=== PATIENT | female | born 2000 | race Two or more races ===

== ENCOUNTER 2018-10-08 23:17 | Emergency (ER) | payer OTHER ==
[~2018-10-08] VITALS: Ht 167.6 cm; Wt 81.6 kg
[2018-10-08 23:55] VITALS: BP 99/53
--- NOTE | 2018-10-08 23:58 | PHYS DOC ---
Adult General Chief Complaint Chief Complaint: MECHANICAL FALL HPI HPI Patient is a 18 year old female who presents with tonight at 2100 she tripped over her dog and fell down 10 stairs. Patient complains of left shoulder pain, left facial pain, left knee pain, left forearm and wrist pain. Patient rates her throbbing aching pain at a 4 out of 10. Patient states she took Toradol before coming to the emergency room. (JAYNA TUCKER APRN) Review of Systems Review of Systems Constitutional: Denies fever or chills [] Eyes: Denies change in visual acuity, redness, or eye pain [] HENT: Denies nasal congestion or sore throat [] Respiratory: Denies cough or shortness of breath [] Cardiovascular: No additional information not addressed in HPI [] GI: Denies abdominal pain, nausea, vomiting, bloody stools or diarrhea [] : Denies dysuria or hematuria [] Musculoskeletal: Left shoulder, left knee, left forearm, left wrist, left maxillofacial pain. Denies back pain or joint pain [] Integument: Denies rash or skin lesions [] Neurologic: Denies headache, focal weakness or sensory changes [] Endocrine: Denies polyuria or polydipsia [] All other systems were reviewed and found to be within normal limits, except as documented in this note. (JAYNA TUCKER APRN) Current Medications Current Medications Current Medications Medications (Trade) Dose Ordered Sig/Jeniffer Start Time Stop Time Status Last Admin Dose Admin Neomycin/ Polymyxin/ Bacitracin (Triple Antibiotic Ointment) 1 pkt 1X ONCE 10/09/18 02:15 10/09/18 02:16 DC 10/09/18 02:20 1 PKT (JANNY HORAN DO) Allergies Allergies Allergies Coded Allergies Type Severity Reaction Last Updated Verified No Known Drug Allergies 10/09/18 No (JANNY HORAN DO) Physical Exam Physical Exam Constitutional: Well developed, well nourished, no acute distress, non-toxic appearance. [] HENT: Normocephalic, atraumatic, bilateral external ears normal, oropharynx moist, no oral exudates, nose normal. [] Eyes: PERRLA, EOMI, conjunctiva normal, no discharge. [] Neck: Normal range of motion, no tenderness, supple, no stridor. [] Cardiovascular:Heart rate regular rhythm, no murmur [] Lungs & Thorax: Bilateral breath sounds clear to auscultation [] Abdomen: Bowel sounds normal, soft, no tenderness, no masses, no pulsatile masses. [] Skin: Abrasion to left shoulder and bruising to left maxillofacial. Warm, dry, no erythema, no rash. [] Back: No tenderness, no CVA tenderness. [] Extremities: Left maxillofacial, left anterior knee, left dorsal lower forearm, left lateral and anterior shoulder tenderness, no cyanosis, no clubbing, ROM intact, no edema. [] Neurologic: Alert and oriented X 3, normal motor function, normal sensory function, no focal deficits noted. [] Psychologic: Affect normal, judgement normal, mood normal. [] (JAYNA TUCKER APRN) Physical Exam Constitutional: Well developed, well nourished, no acute distress, non-toxic appearance HENT: Normocephalic, atraumatic, oropharynx moist Eyes: PERRL, EOMI, conjunctiva normal, no discharge Neck: Normal range of motion, no tenderness, supple Cardiovascular: Heart rate normal, regular rhythm Lungs & Thorax: Bilateral breath sounds clear to auscultation, no wheezing Abdomen: Soft, no tenderness Skin: Warm, dry, no erythema, no rash Back: No tenderness, no CVA tenderness Extremities: No tenderness, ROM intact, no edema Neurologic: Alert and oriented X 3, normal motor function, normal sensory function, no focal deficits noted Psychologic: Affect normal, judgement normal, mood normal (JANNY HORAN DO) Current Patient Data Vital Signs Vital Signs Date Time Temp Pulse Resp B/P (MAP) Pulse Ox O2 Delivery O2 Flow Rate FiO2 10/08/18 23:55 98.1 72 16 99/53 (68) 97 Room Air 98.1 (JANNY HORAN DO) Lab Values Laboratory Tests Test 10/08/18 23:55 10/09/18 00:12 Urine Collection Type Unknown Urine Color Yellow Urine Clarity Clear Urine pH 6.0 Urine Specific Casco >=1.030 Urine Protein Negative mg/dL (NEG-TRACE) Urine Glucose (UA) Negative mg/dL (NEG) Urine Ketones (Stick) Trace mg/dL (NEG) Urine Blood Negative (NEG) Urine Nitrite Negative (NEG) Urine Bilirubin Small (NEG) Urine Urobilinogen Dipstick 1.0 mg/dL (0.2 mg/dL) Urine Leukocyte Esterase Negative (NEG) Urine RBC Occ /HPF (0-2) Urine WBC Occ /HPF (0-4) Urine Squamous Epithelial Cells Mod /LPF Urine Bacteria Few /HPF (0-FEW) Urine Mucus Mod /LPF POC Urine HCG, Qualitative Hcg negative (Negative) (JANNY HORAN DO) Lab Values Laboratory Tests Test 10/08/18 23:55 10/09/18 00:12 Urine Collection Type Unknown Urine Color Yellow Urine Clarity Clear Urine pH 6.0 Urine Specific [place]co >=1.030 Urine Protein Negative mg/dL (NEG-TRACE) Urine Glucose (UA) Negative mg/dL (NEG) Urine Ketones (Stick) Trace mg/dL (NEG) Urine Blood Negative (NEG) Urine Nitrite Negative (NEG) Urine Bilirubin Small (NEG) Urine Urobilinogen Dipstick 1.0 mg/dL (0.2 mg/dL) Urine Leukocyte Esterase Negative (NEG) Urine RBC Occ /HPF (0-2) Urine WBC Occ /HPF (0-4) Urine Squamous Epithelial Cells Mod /LPF Urine Bacteria Few /HPF (0-FEW) Urine Mucus Mod /LPF POC Urine HCG, Qualitative Hcg negative (Negative) (JAYNA TUCKER APRN) EKG EKG [] (JAYNA TUCKER [facility]) Radiology/Procedures Radiology/Procedures [] (JAYNA TUCKER [facility]) Radiology/Procedures EXAM: CT HEAD WITHOUT IV CONTRAST CLINICAL HISTORY: Fall, trauma COMPARISON: None. TECHNIQUE: Routine CT of the head without contrast. Soft tissues and bone windows were reviewed. PQRS compliance statement - One or more of the following individualized dose reduction techniques were utilized for this study: 1. Automated exposure control 2. Adjustment of the mA and/or kV according to patient size 3. Use of iterative reconstruction technique FINDINGS: There is no evidence of hemorrhage, mass or extra-axial fluid collection. Valdes-white differentiation is maintained with no evidence of edema. There is no mass effect or shift of the intracranial structures. The ventricles, basilar cisterns and cortical sulci are normal in size and configuration for the patients stated age. The cerebellum and brainstem are unremarkable. The calvarium demonstrates no evidence of fracture or focal lesion. There is normal aeration of the visualized paranasal sinuses and mastoid air cells. The visualized portions of the orbits are normal. IMPRESSION: No evidence for acute intracranial process EXAM: CT CERVICAL SPINE WITHOUT IV CONTRAST CLINICAL HISTORY: Fall, trauma COMPARISON: None available. TECHNIQUE: Helical CT of the cervical spine was performed. Axial, coronal and sagittal reformatted images were also performed. PQRS compliance statement - One or more of the following individualized dose reduction techniques were utilized for this study: 1. Automated exposure control 2. Adjustment of the mA and/or kV according to patient size 3. Use of iterative reconstruction technique FINDINGS: Vertebral body heights are preserved. Straightening of the normal cervical lordosis. No significant spondylolisthesis. Disc heights are grossly preserved. IMPRESSION: 1. No evidence for acute fracture or subluxation. EXAM: CT facial bones without contrast CLINICAL HISTORY: Fall, trauma COMPARISON: None available. TECHNIQUE: Helical CT of the face/paranasal sinuses was acquired and axial, coronal and sagittal reformatted images were generated. ---PQRS compliance statement - One or more of the following individualized dose reduction techniques were utilized for this study: 1. Automated exposure control 2. Adjustment of the mA and/or kV according to patient size 3. Use of iterative reconstruction technique--- FINDINGS: No evidence for acute fracture or dislocation of the facial bones. Lamina papyracea are intact. Soft tissue swelling overlying the left frontal region and left orbit. The visualized paranasal sinuses are well-aerated. No evidence of air-fluid levels. The mastoids are unremarkable. The globes, extraocular muscles, optic nerves and retrobulbar fat are normal. Visualized upper aerodigestive tract is normal. Mandible and bilateral temporomandibular joints are normal. IMPRESSION: 1. Left forehead and orbital soft tissue swelling without evidence for acute fracture or dislocation. No associated loculated fluid collection. Electronically signed by: Abhi Bear MD (10/09/2018 1:44 AM) [facility] PROCEDURE: WRIST 3V LEFT EXAM: AP and lateral views of the left forearm PA, oblique and lateral views of the left wrist DATE: 10/08/2018 11:48 PM INDICATION: Fall, left wrist/forearm pain COMPARISON: No Prior FINDINGS/ IMPRESSION: 1. No evidence for acute fracture or dislocation about the left wrist or forearm. 2. Mild soft tissue swelling about the left wrist. Electronically signed by: Abhi Bear MD (10/09/2018 2:46 AM) [facility] PROCEDURE: KNEE LEFT 4V EXAM: AP, oblique, lateral and tangential patellar views of the left knee DATE: 10/08/2018 11:48 PM INDICATION: Fall, left knee pain COMPARISON: No Prior FINDINGS/ IMPRESSION: No evidence of acute fracture or dislocation. No significant knee joint effusion. Neutral patellar tracking. Joint spaces are preserved without significant degenerative/proliferative change. Electronically signed by: Abhi Bear MD (10/09/2018 3:07 AM) [facility] PROCEDURE: FOREARM LEFT EXAM: AP and lateral views of the left forearm PA, oblique and lateral views of the left wrist DATE: 10/08/2018 11:48 PM INDICATION: Fall, left wrist/forearm pain COMPARISON: No Prior FINDINGS/ IMPRESSION: 1. No evidence for acute fracture or dislocation about the left wrist or forearm. 2. Mild soft tissue swelling about the left wrist. Electronically signed by: Abhi Bear MD (10/09/2018 2:46 AM) [facility] (JANNY HORAN DO) Course & Med Decision Making Course & Med Decision Making Patient is a 18 year old female who presents with tonight at 2100 she tripped over her dog and fell down 10 stairs. Patient complains of left shoulder pain, left facial pain, left knee pain, left forearm and wrist pain. Patient rates her throbbing aching pain at a 4 out of 10. Patient states she took Toradol before coming to the emergency room. Alert and oriented. Speaks in full clear sentences. PERRLA. Denies any numbness or tingling. Patient can move all extremities equally and has equal strength in all extremities. Patient can move all extremities at all joints with full range of motion. Patient has left posterior and lateral shoulder tenderness with palpation with a abrasion present. Patient has full range of motion in the shoulder. Patient has left anterior knee tenderness to palpation there is no swelling she has full range of motion in her knee. Pedal and radial pulses are strong and present. Skin is pin k warm and dry. Patient has left lower dorsal forearm/wrist bruising tenderness with palpation. Patient has full range of motion in her fingers and wrist. Patient has left maxillofacial tenderness with palpation with redness and swelling. Patient has no pain with extraocular eye movement. There is no swelling to the eye and conjunctiva is white. PERRLA. Lungs are clear to auscultation all lobes. Patient has no cervical spine, thoracic spine, lumbar spine point tenderness. Patient has no abrasions or bruising to her back. Abdomen is soft and nontender. Chest is nontender and there is no crepitus with palpation. Ribs are nontender and there is no crepitus felt with palpation. Patient denies hip pain or pelvis pain. Patient signed out to Dr Horan at 0105. (JAYNA TUCKER APRN) Course & Med Decision Making Signout received from Jayna for patient pending CT imaging. X-rays of wrist and knee without acute fracture or dislocation. Patient seen and evaluated by myself. CT head/cervical spine without acute process. Patient stable for discharge with outpatient follow-up with PCP. Discussed findings and plan with patient, who acknowledges understanding and agreement. (JANNY HORAN DO) Dragon Disclaimer Dragon Disclaimer This electronic medical record was generated, in whole or in part, using a voice recognition dictation system. (JAYNA TUCKER APRN) Departure Departure Impression: Primary Impression: Fall Additional Impressions: Head contusion Wrist sprain Knee pain, left Facial abrasion Disposition: 01 HOME, SELF-CARE Condition: STABLE Referrals: NATE VALENCIA MD Patient Instructions: Abrasion, [id number], Facial or Scalp Contusion, [id number], Fall Prevention and Home Safety, [id number]-hj-Mvug, Knee Pain, Dmnh-[id number], Knee Wraps (Elastic Bandage) and RICE, Wrist Sprain with Rehab- [facility] Additional Instructions: Use over the counter Tylenol and Ibuprofen for pain or discomfort. ICE areas of discomfort 20 min on then off for next few days. Scripts Orphenadrine Citrate (ORPHENADRINE CITRATE) 100 Mg Tablet.er 100 MG PO BID PRN for MUSCLE PAIN, #14 Prov: JANNY HORAN DO 10/09/18 Attending Signature Attending Signature I have personally interviewed and examined the patient. All charts, labs, and imaging studies were reviewed. I agree with the PA/CHIEF DIVERSITY OFFICER's findings, exam, and plan. (JANNY HORAN DO) Problem Qualifiers Primary Impression: Fall Encounter type: initial encounter Qualified Codes: W19.XXXA - Unspecified fall, initial encounter Additional Impressions: Head contusion Encounter type: initial encounter Contusion of head detail: scalp Qualified Codes: S00.03XA - Contusion of scalp, initial encounter Wrist sprain Encounter type: initial encounter Laterality: left Qualified Codes: S63.502A - Unspecified sprain of left wrist, initial encounter Knee pain, left Chronicity: acute Qualified Codes: M25.562 - Pain in left knee Facial abrasion Encounter type: initial encounter Qualified Codes: S00.81XA - Abrasion of other part of head, initial encounter JAYNA TUCKER APRN Oct 08, 2018 23:58 JANNY HORAN DO Oct 09, 2018 02:07
[2018-10-09 00:17] LABS: BILIRUBIN,URINE SMALL (NEG); CLARITY,URINE CLEAR; COLOR,URINE YELLOW; NITRITE,URINE NEGATIVE (NEG); PROTEIN,URINE NEGATIVE (NEG-TRACE)
[2018-10-09 00:26] LABS: BACTERIA,URINE FEW /HPF (0-FEW); RBC,URINE OCC /HPF (0-2); SQUAMOUS EPITHELIAL CELL,UR MOD /LPF; WBC,URINE OCC /HPF (0-4)
--- NOTE | 2018-10-09 01:47 | RAD ---
EXAM: CT HEAD WITHOUT IV CONTRAST CLINICAL HISTORY: Fall, trauma COMPARISON: None. TECHNIQUE: Routine CT of the head without contrast. Soft tissues and bone windows were reviewed. PQRS compliance statement - One or more of the following individualized dose reduction techniques were utilized for this study: 1. Automated exposure control 2. Adjustment of the mA and/or kV according to patient size 3. Use of iterative reconstruction technique FINDINGS: There is no evidence of hemorrhage, mass or extra-axial fluid collection. Valdes-white differentiation is maintained with no evidence of edema. There is no mass effect or shift of the intracranial structures. The ventricles, basilar cisterns and cortical sulci are normal in size and configuration for the patients stated age. The cerebellum and brainstem are unremarkable. The calvarium demonstrates no evidence of fracture or focal lesion. There is normal aeration of the visualized paranasal sinuses and mastoid air cells. The visualized portions of the orbits are normal. IMPRESSION: No evidence for acute intracranial process EXAM: CT CERVICAL SPINE WITHOUT IV CONTRAST CLINICAL HISTORY: Fall, trauma COMPARISON: None available. TECHNIQUE: Helical CT of the cervical spine was performed. Axial, coronal and sagittal reformatted images were also performed. PQRS compliance statement - One or more of the following individualized dose reduction techniques were utilized for this study: 1. Automated exposure control 2. Adjustment of the mA and/or kV according to patient size 3. Use of iterative reconstruction technique FINDINGS: Vertebral body heights are preserved. Straightening of the normal cervical lordosis. No significant spondylolisthesis. Disc heights are grossly preserved. IMPRESSION: 1. No evidence for acute fracture or subluxation. EXAM: CT facial bones without contrast CLINICAL HISTORY: Fall, trauma COMPARISON: None available. TECHNIQUE: Helical CT of the face/paranasal sinuses was acquired and axial, coronal and sagittal reformatted images were generated. ---PQRS compliance statement - One or more of the following individualized dose reduction techniques were utilized for this study: 1. Automated exposure control 2. Adjustment of the mA and/or kV according to patient size 3. Use of iterative reconstruction technique--- FINDINGS: No evidence for acute fracture or dislocation of the facial bones. Lamina papyracea are intact. Soft tissue swelling overlying the left frontal region and left orbit. The visualized paranasal sinuses are well-aerated. No evidence of air-fluid levels. The mastoids are unremarkable. The globes, extraocular muscles, optic nerves and retrobulbar fat are normal. Visualized upper aerodigestive tract is normal. Mandible and bilateral temporomandibular joints are normal. IMPRESSION: 1. Left forehead and orbital soft tissue swelling without evidence for acute fracture or dislocation. No associated loculated fluid collection. Electronically signed by: Abhi Bear MD (10/09/2018 1:44 AM) [facility]
[2018-10-09] MEDS ORDERED: ORPH100T PO (02:12)
[2018-10-09] MEDS ORDERED: NEOMY/BACITR/POLYMYXIN OINT PACKET. TP ONE (02:15)
--- NOTE | 2018-10-09 02:50 | RAD ---
EXAM: AP and lateral views of the left forearm PA, oblique and lateral views of the left wrist DATE: 10/08/2018 11:48 PM INDICATION: Fall, left wrist/forearm pain COMPARISON: No Prior FINDINGS/ IMPRESSION: 1. No evidence for acute fracture or dislocation about the left wrist or forearm. 2. Mild soft tissue swelling about the left wrist. Electronically signed by: Abhi Bear MD (10/09/2018 2:46 AM) [facility]
--- NOTE | 2018-10-09 03:10 | RAD ---
EXAM: AP, oblique, lateral and tangential patellar views of the left knee DATE: 10/08/2018 11:48 PM INDICATION: Fall, left knee pain COMPARISON: No Prior FINDINGS/ IMPRESSION: No evidence of acute fracture or dislocation. No significant knee joint effusion. Neutral patellar tracking. Joint spaces are preserved without significant degenerative/proliferative change. Electronically signed by: Abhi Bear MD (10/09/2018 3:07 AM) [facility]
== END 2018-10-09 02:25 | disposition home or self-care (01) ==
LOC: ER 23:17
DX: S63.592A Other specified sprain of left wrist, initial encounter (principal); S00.83XA Contusion of other part of head, initial encounter; M25.562 Pain in left knee; M25.512 Pain in left shoulder; M79.632 Pain in left forearm; W01.0XXA Fall on same level from slipping, tripping and stumbling without subsequent striking against object, initial encounter; Y93.89 Activity, other specified; Y92.89 Other specified places as the place of occurrence of the external cause; Y99.8 Other external cause status
CPT/HCPCS: 29125; 70450; 70486; 72125; 73090; 73110; 73564; 81001; 81025; 99284; 99285

== ENCOUNTER 2019-07-11 10:18 | Emergency (ER) | payer OTHER ==
[~2019-07-11] VITALS: Ht 152.4 cm; Wt 68.1 kg
[~2019-07-11 10:18] MED LIST: ORPH100T PO
[2019-07-11 10:32] VITALS: BP 112/72
--- NOTE | 2019-07-11 11:11 | PHYS DOC ---
Past Medical History Past Medical History: No Pertinent History Past Surgical History: Other Additional Past Surgical Histo: LEFT AXILLA Smoking Status: Never Smoker Alcohol Use: None Drug Use: None General Adult EDM: Chief Complaint: VAGINAL BLEEDING HPI: HPI: Patient is a pleasant, previously healthy, 25-year-old female who presents to the emergency department for evaluation. She states her LMP was April 25, making her 11 weeks at this time, confirmed by her PCP. She states that over the past 12 hours she developed some lower abdominal cramping, along with vaginal bleeding. She has not had any other discharge. She denies any dizziness or lightheadedness, nausea, vomiting, or urinary symptoms. She is uncertain of her blood type. This is her first . She has not yet seen an charge account authorizer, but has an appointment set up, upcoming. There are no alleviating or exacerbating factors to her symptoms otherwise. Review of Systems: Review of Systems: Constitutional: Denies fever or chills. [] Eyes: Denies change in visual acuity. [] HENT: Denies nasal congestion or sore throat. [] Respiratory: Denies cough or shortness of breath. [] Cardiovascular: Denies chest pain or edema. [] GI: Denies nausea, vomiting, bloody stools or diarrhea. [] : Denies dysuria. [] Musculoskeletal: Denies back pain or joint pain. [] Integument: Denies rash. [] Neurologic: Denies headache, focal weakness or sensory changes. Denies dizziness or lightheadedness. [] Endocrine: Denies polyuria or polydipsia. [] Lymphatic: Denies swollen glands. [] Psychiatric: Denies depression or anxiety. [] Heart Score: Risk Factors: Risk Factors: DM, Current or recent (<one month) smoker, HTN, HLP, family history of CAD, obesity. Risk Scores: Score 0 - 3: 2.5% MACE over next 6 weeks - Discharge Home Score 4 - 6: 20.3% MACE over next 6 weeks - Admit for Clinical Observation Score 7 - 10: 72.7% MACE over next 6 weeks - Early Invasive Strategies Allergies: Allergies: Allergies Coded Allergies Type Severity Reaction Last Updated Verified No Known Drug Allergies 10/09/18 No Physical Exam: PE: PHYSICAL EXAM: CONSTITUTIONAL: Well developed, well nourished HEAD: normocephalic, atraumatic EENT: PERRL, EOMI. Conjunctivae normal color, sclerae non-icteric; moist mucous membranes. NECK: Supple, non-tender; no meningismus. LUNGS: Lungs CTA, breathing even and unlabored. Normal air movement. HEART: Regular rate and rhythm, no murmur CHEST: No deformity; non-tender ABDOMEN: The abdomen is soft, There is mild lower abdominal tenderness to palpation without rebound or guarding, the remainder the abdomen is soft and non-tender, no masses or bruits. EXTREM: Normal ROM; no deformity, no calf tenderness. Normal pulses palpable in all extremities. There is no pedal edema. SKIN: No rash; no diaphoresis NEURO: Alert; normal speech and cognition; CN's grossly intact; strength grossly intact without focal deficit. BACK: No CVA TTP. PELVIC EXAM: Normal external genitalia. There is a small to moderate amount of vaginal blood, with a trace amount of actual cervical bleeding, the office appears closed, there is no cervical motion tenderness. Exam was performed in the presence of ER nursePetra. Current Patient Data: Vital Signs: Vital Signs Date Time Temp Pulse Resp B/P (MAP) Pulse Ox O2 Delivery O2 Flow Rate FiO2 07/11/19 10:32 97.8 86 16 112/72 (85) 98 Room Air 97.8 EKG: EKG: [] Radiology/Procedures: Radiology/Procedures: PROCEDURE: OB <14 WKS W/TV INDICATION: Pelvic pain with vaginal bleeding COMPARISON: None. TECHNIQUE: Grayscale and color ultrasound images uterus and adnexa. Transabdominal and transvaginal images obtained. Transvaginal images were needed to better visualize structures that were limited on transabdominal imaging. FINDINGS: Uterus: 81 x 54 x 43 mm. Endometrial Stripe: 10 mm. Right Ovary: 33 x 34 x 20 mm. Left Ovary: 22 x 21 x 29 mm. Vascular flow identified to bilateral ovaries. Small free fluid in pelvis within physiologic range. 15 x 14 mm hypoechoic lesion right ovary IMPRESSION: * No intrauterine gestational sac is identified. * Vascular flow seen to the bilateral ovaries. There is a hypoechoic lesion of the right ovary which could be from causes such as hemorrhagic cyst but follow-up could be obtained to ensure that this does not increase given the nonspecific appearance.[] Course & Med Decision Making: Course & Med Decision Making Pertinent Labs and Imaging studies reviewed. (See chart for details) [] 1:30 PM: The patient's condition remains stable. I spoke with Alayna nurse practitioner at the patient's OBs office, phone #[phone]. We discussed test results, and the need for repeat beta-hCG evaluation in 48 hours. Differential diagnosis includes miscarriage (suspected), versus ectopic , versus early gestation, the latter of which is considered extremely unlikely at this point given the hCG. Patient's blood type is AB+. Return precautions were discussed in detail with the patient as was the importance of close follow-up. Dragon Disclaimer: Dragon Disclaimer: This electronic medical record was generated, in whole or in part, using a voice recognition dictation system. Departure Departure Impression: Primary Impression: Vaginal bleeding during Disposition: HOME, SELF-CARE Condition: STABLE Referrals: UNKNOWN PCP NAME (PCP) Patient Instructions: Miscarriage, Vaginal Bleeding During , First Trimester Additional Instructions: Call your OB doctor's office today or tomorrow, to schedule an appointment to be seen on Tuesday for further blood testing and evaluation. Return to medical care for any new or worsening symptoms, development of increasing pain, severe bleeding, dizziness or lightheadedness, fevers, or any other concerning symptoms. KRISHNA DEWITT MD Jul 11, 2019 11:11
[2019-07-11 12:14] LABS: BASO % 0 % (0-3); EOS # 0.1 x10^3/uL (0.0-0.7); EOS % 1 % (0-3); HEMOGLOBIN 14.6 g/dL (12.0-15.5); LYMPH # 1.2 x10^3/uL (1.0-4.8); LYMPH % 13 % (24-48); MEAN CORPUSCULAR HEMOGLOBIN 29 pg (25-35); MEAN CORPUSCULAR HGB CONC 34 g/dL (31-37); MEAN CORPUSCULAR VOLUME 86 fL (79-100); MONO # 0.6 x10^3/uL (0.0-1.1); MONO % 7 % (0-9); NEUT % 79 % (31-73); PLATELET COUNT 326 x10^3/uL (140-400); RED BLOOD COUNT 5.01 x10^6/uL (3.50-5.40); RED CELL DISTRIBUTION WIDTH 13.2 % (11.5-14.5)
--- NOTE | 2019-07-11 12:14 | RAD ---
INDICATION: Pelvic pain with vaginal bleeding COMPARISON: None. TECHNIQUE: Grayscale and color ultrasound images uterus and adnexa. Transabdominal and transvaginal images obtained. Transvaginal images were needed to better visualize structures that were limited on transabdominal imaging. FINDINGS: Uterus: 81 x 54 x 43 mm. Endometrial Stripe: 10 mm. Right Ovary: 33 x 34 x 20 mm. Left Ovary: 22 x 21 x 29 mm. Vascular flow identified to bilateral ovaries. Small free fluid in pelvis within physiologic range. 15 x 14 mm hypoechoic lesion right ovary IMPRESSION: * No intrauterine gestational sac is identified. * Vascular flow seen to the bilateral ovaries. There is a hypoechoic lesion of the right ovary which could be from causes such as hemorrhagic cyst but follow-up could be obtained to ensure that this does not increase given the nonspecific appearance. Electronically signed by: Gino Rivera MD (07/11/2019 12:11 PM) [id number]
[2019-07-11 12:23] LABS: CALCIUM 8.9 mg/dL (8.5-10.1); CREATININE 0.6 mg/dL (0.6-1.0); GFR 119.9
[2019-07-11 12:29] LABS: ALBUMIN/GLOBULIN RATIO 1.3 (1.0-1.7); TOTAL BILIRUBIN 0.2 mg/dL (0.2-1.0); TOTAL PROTEIN 7.1 g/dL (6.4-8.2)
[2019-07-11 13:47] LABS: BILIRUBIN,URINE NEGATIVE (NEG); CLARITY,URINE CLEAR; COLOR,URINE YELLOW; NITRITE,URINE NEGATIVE (NEG); PROTEIN,URINE NEGATIVE (NEG-TRACE); UROBILINOGEN,URINE 0.2 mg/dL (0.2 mg/dL)
[2019-07-11 13:57] LABS: BACTERIA,URINE FEW /HPF (0-FEW); SQUAMOUS EPITHELIAL CELL,UR MANY /LPF
[2019-07-11 13:58] LABS: WBC,URINE OCC /HPF (0-4)
[2019-07-12 16:09] LABS: GC PROBE Negative (Negative)
== END 2019-07-11 13:55 | disposition home or self-care (01) ==
LOC: ER 10:18
DX: O46.91 Antepartum hemorrhage, unspecified, first trimester (principal); R10.30 Lower abdominal pain, unspecified; Z98.890 Other specified postprocedural states; Z3A.11 11 weeks gestation of pregnancy
CPT/HCPCS: 36415; 76801; 76817; 80053; 81001; 81025; 84702; 85025; 86900; 86901; 87491; 87591; 99285; Q0111